=== PATIENT | male | born 1955 | race African-American/Black ===

== ENCOUNTER 2020-01-13 04:56 | Emergency (ER) | payer MEDICARE ==
[~2020-01-13] VITALS: Ht 172.7 cm; Wt 87.0 kg
[2020-01-13] MEDS ORDERED: ACETAMINOPHEN 325MG TABLET PO ONE (06:45)
[2020-01-13] MEDS ORDERED: NAPROXEN 250MG TABLET PO ONE (08:15)
[2020-01-13] MEDS ORDERED: IBUPROFEN 600MG TABLET PO ONE (08:30)
[2020-01-13 09:15] VITALS: BP 122/78
== END 2020-01-13 09:16 | disposition home or self-care (01) ==
LOC: ER 04:56
DX: M54.9 Dorsalgia, unspecified (principal); I10 Essential (primary) hypertension; E11.9 Type 2 diabetes mellitus without complications; Z88.0 Allergy status to penicillin
CPT/HCPCS: 71101; 99283